=== PATIENT | male | born 1980 | race Caucasian/White ===

== ENCOUNTER 2017-04-30 09:10 | Emergency (ER) | payer OTHER ==
[2017-04-30] MEDS: HALOPERIDOL 5 MG INJ IM (10:19)
[2017-04-30] MEDS: LORAZEPAM 2 MG INJ IM (10:19)
[2017-04-30] MEDS: DIPHTH/TET/ACEL PERTUSS (ADULT) 0.5 ML VIAL IM* (10:37)
[2017-04-30 12:18] LABS: ADD MAN DIFF? NO
[2017-04-30 12:20] LABS: WHITE BLOOD COUNT 8.2 10^3/ul (4.8-10.8)
[2017-04-30 12:20] LABS: BASOPHILS % 0.2 % (0.0-2.0); EOSINOPHILS # 0.4 10^3/ul (0.0-0.5); EOSINOPHILS % 4.9 % (0.0-7.0); HEMATOCRIT 35.5 % (42.0-52.0); HEMOGLOBIN 11.7 g/dl (14.0-18.0); LYMPHOCYTES # 2.1 10^3/ul (0.8-2.9); LYMPHOCYTES % 25.9 % (15.0-51.0); MEAN CORPUSCULAR HEMOGLOBIN 28.3 pg (29.0-33.0); MEAN CORPUSCULAR VOLUME 85.7 fl (82.0-101.0); MEAN PLATELET VOLUME 10.6 fl (7.4-10.4); MONOCYTE # 0.9 10^3/ul (0.3-0.9); MONOCYTES % 10.5 % (0.0-11.0); NEUTROPHIL # 4.8 10^3/ul (1.6-7.5); NEUTROPHILS % 58.1 % (39.0-77.0); PLATELET COUNT 224 10^3/UL (140-415); RED BLOOD COUNT 4.14 10^6/ul (4.70-6.10); RED CELL DISTRIBUTION WIDTH 13.5 % (11.5-14.5)
[2017-04-30 12:41] LABS: ALANINE AMINOTRANSFERASE 96 IU/L (13-69); ALBUMIN 4.2 g/dl (3.3-4.9); ALBUMIN/GLOBULIN RATIO 1.27; ALKALINE PHOSPHATASE 83 IU/L (42-121); ANION GAP 14 (8-16); ASPARTATE AMINO TRANSFERASE 152 IU/L (15-46); BILIRUBIN,INDIRECT 0.7 mg/dl (0-1.1); BILIRUBIN,TOTAL 0.7 mg/dl (0.2-1.3); BLOOD UREA NITROGEN 23 mg/dl (7-20); CALCIUM 9.4 mg/dl (8.4-10.2); CARBON DIOXIDE 26 mmol/L (21-31); CHLORIDE 107 mmol/L (97-110); CREATININE 0.53 mg/dl (0.61-1.24); GLUCOSE 108 mg/dl (70-220); SODIUM 144 mmol/L (135-144); TOTAL PROTEIN 7.5 g/dl (6.1-8.1)
[2017-04-30 12:52] LABS: ETHANOL < 10.0 mg/dl
[2017-04-30 13:14] LABS: ACETAMINOPHEN < 10.0 ug/ml (10.0-30.0); SALICYLATE < 1.0 mg/dl (5.0-30.0)
[2017-04-30 14:27] LABS: ADD UMIC YES; UR ASCORBIC ACID 20 mg/dL (NEGATIVE); UR BILIRUBIN (Dip) NEGATIVE (NEGATIVE); UR BLOOD (Dip) NEGATIVE (NEGATIVE); UR CLARITY CLEAR (CLEAR); UR COLOR YELLOW (YELLOW); UR GLUCOSE (Dip) NEGATIVE (NEGATIVE); UR KETONES (Dip) 1+ mg/dL (NEGATIVE); UR LEUKOCYTE ESTERASE (Dip) NEGATIVE Leu/ul (NEGATIVE); UR MUCUS FEW /HPF (NONE SEEN); UR NITRITE (Dip) NEGATIVE (NEGATIVE); UR RBC 0 /HPF (0-5); UR TOTAL PROTEIN (Dip) 1+ mg/dl (NEGATIVE); UR UROBILINOGEN (Dip) NEGATIVE (NEGATIVE); UR WBC 0 /HPF (0-5)
[2017-04-30 14:44] LABS: BARBITURATES Negative (NEGATIVE); BENZODIAZEPINES Negative (NEGATIVE); CANNABINOIDS Positive (NEGATIVE); COCAINE Negative (NEGATIVE); OPIATES Negative (NEGATIVE)
[2017-04-30 14:54] LABS: AMPHETAMINE/METHAMPHETAMINE POSITIVE (NEGATIVE)
[2017-04-30] MEDS: RISPERIDONE 2 MG TAB PO (16:21)
== END 2017-04-30 17:00 ==
LOC: E/R 09:10
DX: F29 Unspecified psychosis not due to a substance or known physiological condition (principal); F17.210 Nicotine dependence, cigarettes, uncomplicated
CPT/HCPCS: 80053; 80306; 80307; 81001; 85025; 90471; 90715; 96372; 99291-25

== ENCOUNTER 2017-08-18 13:00 | Emergency (ER) | payer OTHER | END 2017-08-18 15:02 | disposition home or self-care (01) | LOC: E/R 13:00 | DX: S69.91XA Unspecified injury of right wrist, hand and finger(s), initial encounter (principal); L73.2 Hidradenitis suppurativa; L02.414 Cutaneous abscess of left upper limb; L03.114 Cellulitis of left upper limb; W25.XXXA Contact with sharp glass, initial encounter; Y92.9 Unspecified place or not applicable; Z87.891 Personal history of nicotine dependence | CPT/HCPCS: 73130; 73130-RT; 99284-25 ==